=== PATIENT | female | born 1980 | race Caucasian/White ===

== ENCOUNTER 2017-08-03 03:28 | Emergency (ER) | payer MEDICAID ==
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
[2017-08-03 03:44] VITALS: BP 155/125; PULSE 109; RESP 16; TEMP 97.3; O2SAT 98
[2017-08-03] MEDS ORDERED: SULFAMET/TMP DS PREPACK#2 BTL TAKEHOME ONE (03:52)
[2017-08-03] MEDS ORDERED: SULFAMETHOX/TMP 800/160 MG 1 TAB PO ONE (03:52)
== END 2017-08-03 04:12 | disposition home or self-care (01) ==
DX: L03.011 Cellulitis of right finger (principal); I10 Essential (primary) hypertension; F17.200 Nicotine dependence, unspecified, uncomplicated